=== PATIENT | female | born 1955 | race Caucasian/White ===

== ENCOUNTER 2020-09-17 12:07 | Emergency (ER) | payer MEDICARE, OTHER ==
[2020-09-17] MEDS ORDERED: Triamcinolone Acetonide 40 MG/ML 1 ML SDV IM ONE (14:48)
--- NOTE | 2020-09-17 14:58 | EDM.PDOC ---
ED HPI GENERAL MEDICAL PROBLEM - General Chief Complaint: Lower Extremity Injury/Pain Stated Complaint: POSSIBLE GOUT ON RT FOOT Time Seen by Provider: 09/17/20 13:45 Source of Information: Reports: Patient History Limitations: Reports: No Limitations - History of Present Illness INITIAL COMMENTS - FREE TEXT/NARRATIVE: pt has a history of gout and 1 week ago she had a flare in her left great toe. She did take a course of relatively low dose predisone and did not get good relief. Onset: Gradual Duration: Day(s): Location: Reports: Lower Extremity, Left Associated Symptoms: Reports: No Other Symptoms - Related Data Allergies Allergy/AdvReac Type Severity Reaction Status Date / Time No Known Allergies Allergy Verified 09/17/20 13:24 Home Meds: Home Meds Albuterol Sulfate [Proair Hfa] 1 puff IH ASDIRECTED 09/17/20 [History] Aspirin [Halfprin] 81 mg PO DAILY 09/17/20 [History] Calcium Carbonate [Calcium] 500 mg PO DAILY 09/17/20 [History] Chlorpheniramine Maleate 4 mg PO DAILY 09/17/20 [History] Fish Oil/[place]-3 Fatty Acids [Fish Oil 1,000 MG] 2 tab PO BID 09/17/20 [History] Fluticasone Propionate [Flonase] 1 spray IH ASDIRECTED 09/17/20 [History] Ibuprofen 800 mg PO ASDIRECTED 09/17/20 [History] Levothyroxine 112 mcg PO ACBREAKFAST 09/17/20 [History] Propranolol [Inderal] 10 mg PO BID 09/17/20 [History] Valsartan/Hydrochlorothiazide [Valsartan-Hctz 160-25 mg Tab] 1 tab PO DAILY 08/23 10/11 [History] atorvaSTATin [Lipitor] 10 mg PO BEDTIME 09/17/20 [History] Past Medical History HEENT History: Reports: Impaired Vision Cardiovascular History: Reports: Hypertension Respiratory History: Reports: Asthma Gastrointestinal History: Reports: None Genitourinary History: Reports: None 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: Musculoskeletal History: Reports: Back Pain, Chronic, Gout Neurological History: Reports: Migraines Endocrine/Metabolic History: Reports: Hypothyroidism, Obesity/BMI 30+ - Past Surgical History Head Surgeries/Procedures: Reports: None HEENT Surgical History: Reports: Tonsillectomy Cardiovascular Surgical History: Reports: None Respiratory Surgical History: Reports: None GI Surgical History: Reports: Colonoscopy Female Surgical History: Reports: None Endocrine Surgical History: Reports: None Neurological Surgical History: Reports: None Musculoskeletal Surgical History: Reports: None Dermatological Surgical History: Reports: None Social & Family History - Tobacco Use Tobacco Use Status *Q: Never Tobacco User Second Hand Smoke Exposure: No - Caffeine Use Caffeine Use: Reports: Tea - Recreational Drug Use Recreational Drug Use: No Review of Systems - Review of Systems Review Of Systems: See Below Constitutional: Reports: No Symptoms Eyes: Reports: No Symptoms Ears: Reports: No Symptoms Nose: Reports: No Symptoms Mouth/Throat: Reports: No Symptoms Respiratory: Reports: No Symptoms Cardiovascular: Reports: No Symptoms Musculoskeletal: Reports: Other ( severe pain in left great toe. ) ED EXAM, GENERAL - Physical Exam Exam: See Below Free Text/Narrative:: pt has a very painful left great toe. Uric acid is elevated. Exam Limited By: No Limitations General Appearance: Alert, Anxious, Mild Distress Extremities: Other ( left great toe is red inflamed and very tender at the m-p joint. ) Neurological: Alert, Oriented, Normal Cognition Course - Vital Signs Last Recorded V/S: Last Vital Signs Temp 36.4 C 09/17/20 13:32 Pulse 57 L 09/17/20 13:32 Resp 18 09/17/20 13:32 BP 176/71 H 09/17/20 13:32 Pulse Ox 98 09/17/20 13:32 - Orders/Labs/Meds Labs: Laboratory Tests 09/17/20 09/17/20 Range/Units 13:35 13:35 WBC 9.6 (4.5-11.0) K/uL RBC 5.21 (3.30-5.50) M/uL Hgb 14.9 (12.0-15.0) g/dL Hct 44.8 (36.0-48.0) % MCV 86 (80-98) fL MCH 29 (27-31) pg MCHC 33 (32-36) % Plt Count 299 (150-400) K/uL Neut % (Auto) 72.7 H (36-66) % Lymph % (Auto) 18.6 L (24-44) % [place] % (Auto) 6.7 H (2-6) % Eos % (Auto) 1.3 L (2-4) % Baso % (Auto) 0.7 (0-1) % Uric Acid 9.2 H (2.6-6.2) mg/dL Meds: Medications Discontinued Medications Generic Name Dose Route Start Last Admin Trade Name [place] PRN Reason Stop Dose Admin Triamcinolone Acetonide 60 mg 09/17/20 14:48 09/17/20 14:56 Triamcinolone Acetonide 40 Mg/Ml 1 Ml Sdv IM 09/17/20 14:49 60 mg ASDIRECTED ONE Administration - Re-Assessments/Exams Free Text/Narrative Re-Assessment/Exam: 09/17/20 15:01 pt was given kenalog 60 mg im. Departure - Departure Time of Disposition: 14:56 Disposition: Home, Self-Care 01 Condition: Fair Clinical Impression: Gout - Discharge Information Instructions: Low-Purine Eating Plan, Calcium Pyrophosphate Deposition Referrals: [facility] [Other] Forms: ED Department Discharge Care Plan Goals: elevate, cool pack, indocin 50 mg tid for 3 days with food and then indocin 50 mg bid until pain is better. consider talking to your physian regarding a med top keep the uric acid down. Sepsis Event Note (ED) - Evaluation Sepsis Screening Result: No Definite Risk - Focused Exam Vital Signs: Vital Signs Temp Pulse Resp BP Pulse Ox 09/17/20 13:32 36.4 C 57 L 18 176/71 H 98 09/17/20 13:23 36.4 C 57 L 18 176/71 H 98
== END 2020-09-17 15:05 | disposition home or self-care (01) ==
LOC: JP.ED 12:07
DX: M10.072 Idiopathic gout, left ankle and foot (principal); E66.9 Obesity, unspecified; I10 Essential (primary) hypertension; Z79.899 Other long term (current) drug therapy; Z79.82 Long term (current) use of aspirin; Z68.41 Body mass index [BMI] 40.0-44.9, adult
CPT/HCPCS: 36415; 84550; 85025; 96372; 99283; J3301